=== PATIENT | male | born 1955 | race Caucasian/White ===

== ENCOUNTER 2017-11-09 09:42 | Emergency (ER) | payer MEDICAID ==
[~2017-11-09] VITALS: Ht 175.3 cm; Wt 88.9 kg
[2017-11-09 10:19] VITALS: BP 136/94; Ht 175.3 cm; Wt 88.9 kg
== END 2017-11-09 12:05 | disposition home or self-care (01) ==
LOC: ED 09:42
DX: J06.9 Acute upper respiratory infection, unspecified (principal)

== ENCOUNTER 2018-10-07 20:43 | Emergency (ER) | payer MEDICAID ==
[~2018-10-07] VITALS: Ht 175.3 cm; Wt 85.7 kg
[2018-10-07 20:55] VITALS: BP 125/92; Ht 175.3 cm; Wt 85.7 kg
== END 2018-10-08 00:03 | disposition left against medical advice (07) ==
LOC: ED 20:43
DX: Z53.21 Procedure and treatment not carried out due to patient leaving prior to being seen by health care provider (principal)

== ENCOUNTER 2019-10-22 13:31 | Emergency (ER) | payer SELFPAY ==
[~2019-10-22] VITALS: Ht 175.3 cm; Wt 90.3 kg
[2019-10-22 13:46] VITALS: BP 148/97; Ht 175.3 cm; Wt 90.3 kg
== END 2019-10-22 14:15 | disposition home or self-care (01) ==
LOC: ED 13:31
DX: N30.90 Cystitis, unspecified without hematuria (principal); Z87.442 Personal history of urinary calculi; Z87.898 Personal history of other specified conditions